=== PATIENT | male | born 1960 | race African-American/Black ===

== ENCOUNTER 2021-05-01 09:42 | Outpatient (CLI) | payer OTHER | END 2021-05-01 19:03 | disposition home or self-care (01) | LOC: RAD 09:42 | PROVIDERS: ATTEND Internal Medicine | DX: U07.1 COVID-19 (principal); R05.9 Cough, unspecified; Z11.52 Encounter for screening for COVID-19 | CPT/HCPCS: 87635; G2023; U0003 ==